=== PATIENT | male | born 1985 | race Native Hawaiian/Other Pacific Islander ===

== ENCOUNTER 2019-10-16 15:23 | Outpatient (CLI) | payer OTHER ==
[~2019-10-16 15:23] MED LIST: CITA20TA2 PO
== END 2019-10-16 22:48 | disposition home or self-care (01) ==
LOC: LABW 15:23
DX: R50.9 Fever, unspecified (principal); R52 Pain, unspecified; R05 Cough
CPT/HCPCS: 87502

== ENCOUNTER 2021-04-22 09:35 | Outpatient (CLI) | payer OTHER | END 2021-04-22 19:17 | disposition home or self-care (01) | LOC: RAD 09:35 | PROVIDERS: ATTEND Nurse Practitioner Family | DX: J21.9 Acute bronchiolitis, unspecified (principal) ==